=== PATIENT | female | born 1985 | race Caucasian/White ===

== ENCOUNTER → 2016-04-13 | Outpatient (CLI) | payer OTHER, MEDICAID ==
--- NOTE | 2016-04-13 18:30 | DX ---
Left Ankle, Three Views Clinical Indications: Rule out fracture/sprain of left ankle. Unspecified ligament. S93.402A. Comparison: June 07, 2009. Findings: Bone mineral density appears decreased for a 30-year-old female. Bony alignment at the an kle is anatomic. Soft tissue swelling is present. There is a small linear avulsion fracture off the inferomedial malleolus. Mild arthritic changes are present in the subtalar joint. There is some soft tissue swelling present. Impressions 1. The bones appear mildly osteopenic. DEXA may be helpful for further evaluation of bone mineral d ensity. 2. Small avulsion fracture off the inferomedial malleolus. Critical results relayed by Dr. Alfonso to nurse Cook on April 13, 2016 at 1734 hours. E:[email or web address]
== END ==
LOC: FIMAGING 13:59
PROVIDERS: ATTEND Physician Assistant
DX: S82.52XA Displaced fracture of medial malleolus of left tibia, initial encounter for closed fracture (principal)

== ENCOUNTER → 2016-05-24 | Outpatient (CLI) | payer OTHER, MEDICAID | LOC: FIMAGING 09:22 | PROVIDERS: ATTEND Physician Assistant | DX: S82.892D Other fracture of left lower leg, subsequent encounter for closed fracture with routine healing (principal) ==